=== PATIENT | female | born 1960 | race Caucasian/White ===

== ENCOUNTER → 2020-05-10 | Outpatient (CLI) | payer OTHER ==
[~2020-05-10] MED LIST: CRESTOR5 MG PO; DIOVAN160 MG PO; FARXIGA5 MG PO; GLUCOPHAGE1000 MG PO; MULTI VITAMIN1 EACH PO; TOPROL XL50 MG PO; TOUJEO SOL300 UNIT/1 SUBQ; TRULICITY1.5 MG/0.5 SUBQ; ZANAFLEX4 M2 PO
[2020-05-10 11:37] LABS: CREATININE 0.7 mg/dL (0.6-1.0)
== END ==
LOC: CAT 10:49 → LABMALL 10:49
PROVIDERS: ATTEND Nurse Practitioner
DX: R10.32 Left lower quadrant pain (principal); Z90.49 Acquired absence of other specified parts of digestive tract

== ENCOUNTER → 2020-05-30 | Outpatient (CLI) | payer OTHER ==
[~2020-05-30] VITALS: Ht 172.7 cm; Wt 86.2 kg
--- NOTE | 2020-05-30 10:51 | P ---
[facility] [place] [address] PROCEDURE REPORT Name: JANICE ARITA Room #: REG [facility] Tiffanie.#: [id number] Admission: 05/30/20 Attend Phys: Jakub Mills Discharge: Date of : 60 Report #: [id number] THIS REPORT FOR: cc: Davy Ramsey MD, Neal A. MD McElhinney, Christian C. MD ~ CC: Jakub Ramsey MD DATE OF SERVICE: 05/30/2020 PROCEDURE PERFORMED: Colonoscopy with biopsies. HISTORY OF PRESENT ILLNESS: The patient is a 60-year-old female who presents today for routine screening colonoscopy. No family history of colon cancer. DESCRIPTION OF PROCEDURE: The risks and benefits of the procedure were explained to the patient, those risks including but not limited to bleeding, perforation and the risk of sedation. She understood these risks and gave informed consent. Sedation was given using propofol per anesthesia. Next, a digital rectal exam was initially performed, which showed external hemorrhoids, otherwise normal. Next, using a standard Olympus colonoscope, the scope was placed in the patient's anus and advanced under direct vision to the cecum. The overall prep was good. The cecum and ileocecal valve were normal in appearance. Terminal ileum was intubated and normal in appearance. Ascending, transverse and descending colon were normal. In the sigmoid colon, a 4 mm sessile polyp was noted. This was removed with cold forceps. Random biopsies were also obtained today to rule out the possibility of microscopic colitis. The rectal mucosa was normal. On retroflexion, small nonbleeding internal hemorrhoids were noted. Scope was then withdrawn and the procedure terminated. The patient tolerated the procedure well. IMPRESSION: 1. Small colonic polyp. 2. Internal and external hemorrhoids. 3. Otherwise, normal colonoscopy. RECOMMENDATIONS: 1. Await biopsy results. 2. If polyp is hyperplastic, repeat in 10 years; if adenomatous polyp, repeat in [address] [address] PROCEDURE REPORT Name: JUAN JJANICE Room #: REG [facility] Keily.#: [id number] Admission: 05/30/20 Attend Phys: Jakub Mills Discharge: Date of : 60 Report #: [id number] Thank you for allowing me to participate in her care. <ELECTRONICALLY SIGNED> By: Jakub Cardozo MD 05/30/20 1051 1000 1020 Jakub Cardozo MD /nt
--- NOTE | 2020-05-31 17:06 | PATH ---
[facility] [place] [address] PATHOLOGY RPT PROCEDURE Name: JANICE THORNTON Room #: REG [facility] Keily.#: [id number] Admission: 05/30/20 Date of : 60 Discharge: Report #: [id number] Path Case #: [id number] [facility] Accession Number: [id number] . 01 Material submitted: . PART A: colon - RANDOM COLON BIOPSY PART B: colon - POLYP AT SIGMOID. Modifiers: sigmoid . 01 Clinical history: . Screening . 02 Diagnosis: A. 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 - Negative for dysplasia or malignancy. . B. Polyp, sigmoid polyp, endoscopic biopsy: - Tubular adenoma. - Negative for dysplasia. (IUV:naila; 05/31/2020) QMS 05/31/2020 1251 Local . 02 Comment: Examination of the "random colon" biopsy tissue shows focal cryptitis, a moderately cellular lamina propria comprised of lymphocytes, plasma cells, as well as eosinophils. The differential diagnosis includes allergic or collagen vascular diseases, forms of eosinophilic colitis, diverticulitis. Please correlate clinically. (IUV:naila; 05/31/2020) . 02 Electronically signed: . Kayla Babin MD, Pathologist NPI- [id number] . 01 Gross description: . A. The specimen is received in formalin, labeled "Janice Thornton, random colon BX" and consists of multiple fragments of pink-arriaga tissue measuring 1.3 x 0.7 x 0.3 cm in aggregate which are entirely submitted in A1. . B. The specimen is received in formalin, labeled "Janice Thornton, polyp at sigmoid colon" and consists of 4 fragments of arriaga tissue measuring 0.8 x 0.5 x 0.2 cm in aggregate which are entirely submitted in B1. (SDY; 05/30/2020) SYU/SYU 05/30/2020 1717 Local . 02 Pathologist provided ICD-10: K52.9, D12.[address] [address] PATHOLOGY RPT PROCEDURE Name: JANICE THORNTON ALIYA Room #: REG Pratik Rodriguez#: [id number] Admission: 05/30/20 Date of : 60 Discharge: Report #: [id number] Path Case #: [id number] . 02 CPT . 114935, [id number] Specimen Comment: A courtesy copy of this report has been sent to [phone], [phone] Specimen Comment: [id number] Specimen Comment: Report sent to / DR GUALLPA Performed at: [address], [place] [id number] MD Yonathan Roldan MD Phone: [phone] Performed at: [address] [id number] MD Kayla Babin MD Phone: [phone]
== END | disposition home or self-care (01) ==
LOC: GI 07:28
PROVIDERS: ATTEND Specialist
DX: Z12.11 Encounter for screening for malignant neoplasm of colon (principal); K52.9 Noninfective gastroenteritis and colitis, unspecified; D12.5 Benign neoplasm of sigmoid colon; I10 Essential (primary) hypertension; E11.9 Type 2 diabetes mellitus without complications; E78.5 Hyperlipidemia, unspecified; K21.9 Gastro-esophageal reflux disease without esophagitis; F17.210 Nicotine dependence, cigarettes, uncomplicated; Z98.890 Other specified postprocedural states; Z79.899 Other long term (current) drug therapy; Z90.49 Acquired absence of other specified parts of digestive tract; Z90.710 Acquired absence of both cervix and uterus
CPT/HCPCS: 62110; 62900

== ENCOUNTER → 2020-06-22 | Outpatient (CLI) | payer OTHER | LOC: LAB 10:45 | PROVIDERS: ATTEND Family Medicine | DX: U07.1 COVID-19 (principal) ==